=== PATIENT | male | born 1950 | race African-American/Black ===

== ENCOUNTER → 2018-02-10 | Outpatient (CLI) | payer BC | END | disposition home or self-care (01) | LOC: PCVCCLINIC 11:59 | PROVIDERS: ATTEND Internal Medicine | DX: I49.9 Cardiac arrhythmia, unspecified (principal); I10 Essential (primary) hypertension; E78.5 Hyperlipidemia, unspecified; Z87.891 Personal history of nicotine dependence | CPT/HCPCS: 80061; G0463 ==

== ENCOUNTER → 2018-02-24 | Outpatient (CLI) | payer BC ==
--- NOTE | 2018-02-25 09:39 | PCVCIMAG ---
APPROVED REPORT Study performed: 02/24/2018 15:02:13 Exam: Stress Echocardiogram Indication: Hypertension, Hyperlipidemia, Irregular heart beat Patient Location: Echo lab Stress Nurse: Tiffanie Garza RN Status: routine Ht: 5 ft 11 in HR: 77 bpm BP: 104/70 mmHg Rhythm: NSR Medical History Medical History: Hyperlipidemia, HTN Procedure The patient underwent an Exercise Stress Test using the Will Protocol. Blood pressure, heart rate, and EKG were monitored. An Echocardiogram was performed by combination technician in four stages in quad fashion. At peak stress, four selected images were obtained and placed side by side with resting images for comparison. Stress Test Details Stress Test: Exercise stress testing was performed using a Will protocol. HR Resting HR: 77 bpmMax Heart Rate (APMHR): 155 bpm Max HR Achieved: 144 bpmTarget HR (85% APMHR): 131 bpm % of APMHR: 92 Recovery HR: 91 bpm HR response to stress: Normal HR response to stress BP Resting BP: 104/70 mmHg Max BP: 190/90 mmHg Recovery BP: 160/84 mmHg ECG Resting ECG: Sinus Rhythm Stress ECG: Sinus Rhythm Arrhythmia: VPC's Recovery ECG: Sinus Rhythm Recovery Arrhythmia: APC Clinical Reason for Termination: Maximal effort, Knee pain Exercise duration: 6 min 19 sec Highest Stage Achieved: Stage 3: 3.4 mph at 14% grade. Exercise capacity: 7.90 METs Overall Exercise Capacity for Age: Average Stress ECG Conclusion 1. Subjectively negative for ischemia 2. Electrocardiographically negative for ischemia 3. Reduced functional capacity Pre-Stress Echo The resting Echocardiogram showed normal left ventricular contractility with an estimated Ejection Fraction of about 55-60%. Normal wall motion in all segments on baseline images. Post-Stress Echo The stress Echocardiogram showed normal left ventricular contractility with an estimated Ejection Fraction of about 60-65%. Normal augmentation of wall motion in all segments on post stress images. Clinical No clinical or ECG evidence for ischemia. Conclusion Clinical Response: Non-ischemic Exercise Capacity: Below Average Stress ECG Response: Non-ischemic Stress Echo Images: Non-ischemic The left ventricle is normal in size in both the rest and stress images. Mild concentric left ventricular hypertrophy is noted. 1. LOW RISK STUDY Other Information Study Quality: Good <Conclusion> The left ventricle is normal in size in both the rest and stress images. Mild concentric left ventricular hypertrophy is noted. 1. LOW RISK STUDY
== END | disposition home or self-care (01) ==
LOC: PCVCIMAG 16:13
PROVIDERS: ATTEND Internal Medicine
DX: I10 Essential (primary) hypertension (principal); I49.9 Cardiac arrhythmia, unspecified; I51.7 Cardiomegaly
CPT/HCPCS: 93325; 93351